=== PATIENT | female | born 1960 | race Caucasian/White ===

== ENCOUNTER → 2017-10-31 | Outpatient (CLI) | payer BC ==
[2017-10-31 16:05] VITALS: BP 135/69; PULSE 65; TEMP 98.2; BMI 29.2
--- NOTE | 2017-10-31 16:07 | P.HPBAR ---
Bariatric H&P - History & Physicial H&P Date: 10/31/17 History & Physicial: Visit/CC: Patient initial contact: Initial weight: Initial weight in pounds: Height: 5 ft 10 in Initial BMI: Last weight: Current weight: 92.442 kg Current weight in pounds: Current BMI: [place] body weight (based on NIH guidelines): Excess body weight loss: The patient is a 57 year-old F who presents for Bariatric Assessment. The patient presents for lap band follow up. She's not been seen several years. She has some complaints of dysphagia and GERD. The patient states that she has had intermittent GERD and dysphagia for several months. She is requesting fluid removed from her band. Surgical - Exam - General well developed, no distress - Eyes PERRL - ENT normal pinna - Neck no masses - Respiratory normal expansion - Cardiovascular Rhythm: regular - Abdomen Abdomen: soft, non tender Bariatric Assessment & Plan Plan: The patient LAP-BAND was emptied. 1.6 mL remove her band. She'll follow-up in one month. Bariatric Checklist Checklist: Plan: Checklist: EGD: 1. Hiatal hernia: 2. H. Pylori: HgbA1c: Vitamin D: Smoking: Primary care physician referral: Psychiatry clearance: Cardiology clearance: Sleep study: Diet journal: VTE risk score: VTE risk level: Rehab needs at discharge:
== END | disposition home or self-care (01) ==
LOC: BARWHC3 15:26
PROVIDERS: ATTEND Surgery
DX: Z48.815 Encounter for surgical aftercare following surgery on the digestive system (principal)
CPT/HCPCS: 99212

== ENCOUNTER → 2023-05-02 | Outpatient (CLI) | payer BC ==
[2023-05-02 13:24] VITALS: BP 124/85; PULSE 72; TEMP 98.1; BMI 29.7
[2023-05-02 21:26] LABS: Basophils # (A) 0.04 X 10*3/uL (0.00-0.10); Basophils % (A) 0.6 %; Eosinophils % (A) 1.6 %; HCT 41.6 % (37.2-46.3); HGB 13.5 d/dL (12.0-15.0); Lymphocytes # (A) 1.98 X 10*3/uL (0.90-5.00); Lymphocytes % (A) 32.1 %; MCH 30.8 pg (27.0-32.0); MCHC 32.5 d/dL (32.0-37.0); Monocytes # (A) 0.48 X 10*3/uL (0.20-1.00); Monocytes % (A) 7.8 %; NRBC Per 100 WBC 0 X 10*3/uL (0.00-0.01); Neutrophils # (A) 3.54 X 10*3/uL (1.80-7.70); Neutrophils % (A) 57.6 %; Platelet Count 241 X 10*3/uL (140-440); RBC 4.38 X 10*6/uL (4.10-5.20); RDW 12.3 % (11.5-14.5); WBC 6.16 X 10*3/uL (4.50-10.00)
[2023-05-02 21:54] LABS: ALT 25 U/L (8-44); AST 26 U/L (13-35); Albumin 4.8 d/dL (3.8-4.9); Albumin/Globulin Ratio 2.18 Ratio (1.60-3.17); Alkaline Phosphatase 81 U/L (41-126); BUN/Creat Ratio 18.22 Ratio (12.00-20.00); Blood Urea Nitrogen 16.4 mg/dL (9.0-27.0); Calcium 9.8 mg/dL (8.7-10.3); Carbon Dioxide 26.1 mmol/L (21.6-31.8); Chloride 103 mmol/L (96-109); Globulin 2.2 d/dL (1.6-3.3); Glucose 90 mg/dL (70-110); Potassium 4.1 mmol/L (3.5-5.5); Sodium 142 mmol/L (135-145); Total Bilirubin 0.4 mg/dL (0.3-1.2)
--- NOTE | 2023-05-18 09:14 | P.HPBAR ---
Bariatric H&P - History & Physicial H&P Date: 05/02/23 History & Physicial: Visit/CC: lap band Patient initial contact: Initial weight: Initial weight in pounds: Height: 5 ft 10 in Initial BMI: Last weight: Current weight: 93.894 kg Current weight in pounds: 207.00 Current BMI: 29.7 [place] body weight (based on NIH guidelines): 68.039 kg Excess body weight loss: The patient is a 63 year-old F who presents for Bariatric Assessment. This is a 63-year-old female who presents today for bariatric follow-up. Patient has had issues with chronic GERD and dysphagia related to her LAP-BAND. Patient wants her band removed. Past Medical History Past Medical History: GERD/Reflux, Hyperlipidemia History of Any Multi-Drug Resistant Organisms: None Reported Past Surgical History: Bariatric Surgery Additional Past Surgical History / Comment(s): lap band Past Anesthesia/Blood Transfusion Reactions: No Reported Reaction Past Psychological History: Anxiety Smoking Status: Former smoker Past Alcohol Use History: None Reported Additional Past Alcohol Use History / Comment(s): quit 16 year ago Past Drug Use History: None Reported Surgical - Exam Vital Signs Temp Pulse BP 98.1 F 72 124/85 05/02/23 13:15 05/02/23 13:15 05/02/23 13:15 - General well developed, well nourished, no distress - Eyes PERRL - ENT normal pinna - Neck no masses - Respiratory normal expansion - Cardiovascular Rhythm: regular - Abdomen Abdomen: soft, non tender Results - Labs 05/02/23 15:13 05/02/23 15:13 Bariatric Assessment & Plan Plan: GERD and dysphagia with LAP-BAND. Patient was scheduled for removal of her LAP- BAND. Bariatric Checklist Checklist: Plan: Checklist: EGD: 1. Hiatal hernia: 2. H. Pylori: HgbA1c: Vitamin D: Smoking: Former smoker Primary care physician referral: Psychiatry clearance: Cardiology clearance: Sleep study: Diet journal: VTE risk score: VTE risk level: Rehab needs at discharge:
== END ==
LOC: BARWHC3 12:45
PROVIDERS: ATTEND Surgery
DX: Z01.818 Encounter for other preprocedural examination (principal); K21.9 Gastro-esophageal reflux disease without esophagitis; E78.5 Hyperlipidemia, unspecified; R13.10 Dysphagia, unspecified; Z87.891 Personal history of nicotine dependence; Z98.84 Bariatric surgery status; Z88.1 Allergy status to other antibiotic agents
CPT/HCPCS: 80053; 85025; 93005; 99211

== ENCOUNTER 2023-06-03 05:31 | Day surgery (SDC) | payer BC ==
[2023-06-03] MEDS ORDERED: LIDOCAINE 1% (10MG/ML) FOR IV START INTRADERMA PRN (05:59)
[2023-06-03] MEDS ORDERED: LACTATED RINGERS 1,000 ML IV SCH (05:59)
[2023-06-03] MEDS ORDERED: LACTATED RINGERS 1,000 ML IV ONE (06:20)
[2023-06-03] MEDS ORDERED: DEXAMETHASONE SOD PHOSPHATE 4 MG/ML 1 ML VIAL IVP ONE (06:21)
[2023-06-03] MEDS ORDERED: droPERidol 5 MG/2 ML VIAL IVP PRN (07:00)
[2023-06-03] MEDS ORDERED: HYDROmorphone 0.5 MG/0.5 ML SYRINGE IVP PRN (07:00)
[2023-06-03] MEDS ORDERED: ONDANSETRON 4 MG/2 ML VIAL IVP PRN (07:00)
[2023-06-03] MEDS ORDERED: HEPARIN SODIUM,PORCINE 5,000 UNIT/ML 1 ML VIAL SQ ONE (07:11)
[2023-06-03] MEDS ORDERED: SUCCINYLCHOLINE CHLORIDE 200 MG/10 ML VIAL IV ONE (07:13)
[2023-06-03] MEDS ORDERED: fentaNYL (PF) 50 MCG/ML 2 ML AMP ONE (07:13)
[2023-06-03] MEDS ORDERED: PROPOFOL 10 MG/ML 20 ML VIAL IV ONE (07:13)
[2023-06-03] MEDS ORDERED: NEOSTIGMINE 1 MG/ML 10 ML VIAL ONE (07:13)
[2023-06-03] MEDS ORDERED: MIDAZOLAM 2 MG/2 ML VIAL ONE (07:13)
[2023-06-03] MEDS ORDERED: KETOROLAC 30 MG/ML 1 ML VIAL ONE (07:13)
[2023-06-03] MEDS ORDERED: GLYCOPYRROLATE 0.2 MG/ML 2 ML VIAL ONE (07:13)
[2023-06-03] MEDS ORDERED: HYDROmorphone (PF) 1 MG/ML ONE (07:13)
[2023-06-03] MEDS ORDERED: LIDOCAINE 1% INJ 10MG/ML (20 ML MDV) ONE (07:13)
[2023-06-03] MEDS ORDERED: ROCURONIUM 10 MG/ML (5 ML VIAL) IV ONE (07:13)
[2023-06-03] MEDS ORDERED: PHENYLEPHRINE-0.9% NACL SYG 1,000 MCG/10 ML SYRINGE ONE (07:13)
[2023-06-03] MEDS ORDERED: LIDOCAINE 1%-EPI 1:100,000 50 ML VIAL SQ ONE ×3 (07:30→07:35)
[2023-06-03 08:26] VITALS: RESP 16; TEMP 98
--- NOTE | 2023-06-03 08:26 | P.OP ---
Date of Procedure: 06/03/23 Preoperative Diagnosis: GERD, dysphagia Postoperative Diagnosis: GERD, dysphagia Procedure(s) Performed: Laparoscopic removal of LAP-BAND system Anesthesia: DOMINIC Surgeon: Checo Magdaleno Estimated Blood Loss (ml): 5 Pathology: none sent Condition: stable Disposition: PACU Description of Procedure: Patient's placed on the operating table in the supine position. She received general endotracheal tube anesthesia. She was then placed in dorsal 5 position. Her abdomen was prepped and draped in sterile fashion. The skin incision sites were anesthetized 1% local Xylocaine. Using a 11 blade the skin was incised at the LAP-BAND port site using blunt and sharp dissection with cautery the LAP-BAND port was dissected free. The PEG tube was then cut and the port was withdrawn. Next using a 5 ohmmeter optical trocar the pleural cavity is entered. Under direct vision. The abdomen and spleen. After adequate insufflation the laparoscope placed back peritoneal cavity. Next a 5 mm trocar was placed in the right upper quadrant. And then another 5 mm trochars placed in the right lateral and left lateral position. Another 5 mm trochars placed in the left epigastric position and the original 5 mm trocar was exchanged for a 15 mm trocar. The left lateral lobe liver was re tracted. And then the adhesions Angel device were lysed using sharp dissection and the Harmonic scissors. The LAP-BAND was cut and withdrawn from around stomach. The LAP-BAND was extracted through the 15 mm trocar site. There is no injury to the stomach or liver seen. This point the trochars withdrawn. The skin was then closed interrupted 3-0 Monocryl suture. Dermabond was applied. Patient top she will she was sent to recovery room in stable condition.
[2023-06-03 09:57] VITALS: BP 146/64; PULSE 64
== END 2023-06-03 10:18 | disposition home or self-care (01) ==
LOC: OR 05:31
PROVIDERS: ATTEND Surgery
DX: K21.9 Gastro-esophageal reflux disease without esophagitis (principal); E66.01 Morbid (severe) obesity due to excess calories
CPT/HCPCS: 43774; J2250; J0330; J1644; J1100; J2710; J0690; J2405; J2001; J3010; J1885; J1170; J2704; J2371

== ENCOUNTER → 2023-06-10 | Outpatient (CLI) | payer BC ==
[2023-06-10 11:53] VITALS: BP 107/70; PULSE 78; RESP 13; TEMP 98.2; BMI 30.2
== END ==
LOC: BARWHC3 11:03
PROVIDERS: ATTEND Surgery
DX: E66.01 Morbid (severe) obesity due to excess calories (principal); Z68.30 Body mass index [BMI] 30.0-30.9, adult; Z98.84 Bariatric surgery status
CPT/HCPCS: 99211

== ENCOUNTER → 2023-06-20 | Outpatient (CLI) | payer BC ==
[2023-06-20 08:59] VITALS: BP 120/81; PULSE 68; TEMP 98.5; BMI 29.2
--- NOTE | 2023-06-20 12:00 | P.HPBAR ---
Bariatric H&P - History & Physicial H&P Date: 06/20/23 History & Physicial: Visit/CC: band removal F/U Patient initial contact: Initial weight: Initial weight in pounds: Height: 5 ft 10 in Initial BMI: Last weight: Current weight: 92.533 kg Current weight in pounds: 204.00 Current BMI: 29.2 [place] body weight (based on NIH guidelines): 68.039 kg Excess body weight loss: The patient is a 63 year-old F who presents for Bariatric Assessment. This a 63-year-old female with history of GERD. Patient had her band previously removed. She has minimal GERD. She states she more. She is actually lost weight last visit. Past Medical History Past Medical History: GERD/Reflux, Hyperlipidemia, Osteoarthritis (OA) History of Any Multi-Drug Resistant Organisms: None Reported Past Surgical History: Bariatric Surgery Additional Past Surgical History / Comment(s): lap band, colonoscopy, lap band removed Past Anesthesia/Blood Transfusion Reactions: No Reported Reaction Past Psychological History: Anxiety Smoking Status: Former smoker Past Alcohol Use History: Occasional Additional Past Alcohol Use History / Comment(s): quit 21 year ago, smoked for 20 yrs., 1ppd, occasional cocktail few times months Past Drug Use History: None Reported Surgical - Exam Vital Signs Temp Pulse BP 98.5 F 68 120/81 06/20/23 08:43 06/20/23 08:43 06/20/23 08:43 - General well developed, well nourished, no distress - Eyes PERRL - Abdomen Abdomen: soft, non tender Bariatric Assessment & Plan Plan: Patient's GERD is minimal will be observed. She'll follow-up in 3 months. Bariatric Checklist Checklist: Plan: Checklist: EGD: 1. Hiatal hernia: 2. H. Pylori: HgbA1c: Vitamin D: Smoking: Former smoker Primary care physician referral: Psychiatry clearance: Cardiology clearance: Sleep study: Diet journal: VTE risk score: VTE risk level: Rehab needs at discharge:
== END ==
LOC: BARWHC3 08:29
PROVIDERS: ATTEND Surgery
DX: E66.01 Morbid (severe) obesity due to excess calories (principal); K21.9 Gastro-esophageal reflux disease without esophagitis; F41.9 Anxiety disorder, unspecified; E78.5 Hyperlipidemia, unspecified; M19.90 Unspecified osteoarthritis, unspecified site; Z87.891 Personal history of nicotine dependence; Z98.84 Bariatric surgery status; Z88.1 Allergy status to other antibiotic agents; Z68.29 Body mass index [BMI] 29.0-29.9, adult
CPT/HCPCS: 99211